=== PATIENT | male | born 1975 | race Caucasian/White ===

== ENCOUNTER → 2024-03-05 | Outpatient (CLI) | payer OTHER ==
[~2024-03-05] MED LIST: CEPH500 PO; HYDACE5 PO; OXYACE7.5T PO; RXOXYACE PO; SILSUL1TC TOP
== END | disposition home or self-care (01) ==
LOC: LAB SHORT 07:30
DX: L57.0 Actinic keratosis (principal)
CPT/HCPCS: 88305